=== PATIENT | male | born 1950 | race Caucasian/White ===

== ENCOUNTER 2019-10-18 11:56 | Emergency (ER) | payer OTHER, SELFPAY ==
[2019-10-18 11:59] VITALS: BP 178/96; PULSE 80; RESP 19; TEMP 36.4; O2SAT 96; BMI 26.8
--- NOTE | 2019-10-18 12:18 | ED.DCSUM_ITS ---
- ER Visit Summary Date of Service: 10/18/19 Chief Complaint: Insect bite History of Present Illness: The patient is a 69 M who presents with an insect bite that he noticed approximately 2 weeks ago. Patient states it is been itching. Patient states he went to [facility] urgent care and was given a prescription for Keflex. Patient states he was told that if it is not getting any better he should come to the emergency department. Patient states he does not feel like it is improving. Patient denies any fevers or chills. Patient denies any discharge or drainage. Patient states nothing makes it better or worse. Patient denies any abscess formation. Physical Examination: Vital signs are stable. Patient is afebrile. Patient is in no acute distress. Oral mucosa is pink and moist. Neck is supple. Trachea is midline. There is no JVD. Heart was regular rate and rhythm. Lungs are clear and equal bilateral. Abdomen is soft. Bowel sounds are normal. There is no tenderness. Skin is warm and dry. There is some erythema and warmth over the right flank area. There is no abscess formation. There is no fluctuance. There is no induration. There is no discharge or drainage. There are no vesicles or pustules noted. There are no petechia noted. Extremities are intact. There is no calf tenderness or edema. Test Results: CBC and comprehensive metabolic profile were obtained and were within normal limits. Emergency Department Course and Treatment: Patient was given a dose of IV Unasyn here. Patient will be instructed to continue his Keflex. Patient will be given a prescription for Bactrim to take in addition to this. Patient was instructed to follow-up with his primary care physician in 3 to 5 days for wound recheck. Patient understood and was agreeable with the plan. All questions were answered. Disposition: Discharge home Impression: Cellulitis right flank This note was generated with [employer] dictation software. It may contain incorrect words, spelling, and punctuation that were not noted in review of the chart prior to signing ED Disposition - Plan for ED Patient: Disposition: Home or Assisted Living Diagnosis: Cellulitis Prescriptions: Smz/Tmp Ds [Bactrim Ds] 1 tab PO BID #20 tab Prescription Printed Referrals: [facility] Doctor,Out of [NON-STAFF] - 3-5 Days
[2019-10-18 12:50] LABS: Absolute Lymphocyte Count 2.19 X10^3/uL (0.83-4.51); Absolute Neutrophil Count 3.4 X10^3/uL (2.0-7.7); Basophil# 0.05 X10^3/uL; Basophil% 0.8 % (0-1); Eosinophil# 0.44 X10^3/uL; Eosinophils% 6.7 % (0-5); Hematocrit 44.1 % (40-54); Hemoglobin 14.6 g/dL (13.0-16.5); Lymphocyte # 2.19 X10^3/ul (4.0); Lymphocyte % 33.1 % (19-41); Mean Corp Hgb Conc 33.1 g/dL (32-36); Mean Corpuscular Hgb 32.4 pg (27.0-32.0); Monocyte# 0.54 X10^3/uL; Monocyte% 8.2 % (0-10); NRBC Flagged by Analyzer 0 % (0-5); Neutrophil # 3.37 X10^3/uL (2.7-7.7); Neutrophil % 50.9 % (47-70); Platelet Count 223 K/mm3 (150-450); RBC Distribution Width CV 12.8 % (11.6-14.6); RBC Distribution Width SD 45.5 fl (35.1-43.9); White Blood Count 6.6 K/mm3 (4.4-11.0)
[2019-10-18 13:05] LABS: ALB/GLOB Ratio 1.1 RATIO (0.9-2.4); AST(SGOT) 16 U/L (15-37); Alanine Aminotransfer ALT/SGPT 34 U/L (16-61); Albumin, Serum 3.7 g/dL (3.2-5.0); Alkaline Phosphatase 46 U/L (45-117); Anion Gap 7 (5-15); BUN 11 mg/dL (7-18); BUN/Creat Ratio 13.6 RATIO (10-20); Calcium,Total 9.1 mg/dL (8.5-10.1); Chloride 107 mmol/L (98-107); Creatinine, Serum 0.81 mg/dL (0.70-1.30); EST Glomerular Filtration Rate 101 mL/min (>60); Est Glom Filt Rate - Afr Amer 123 mL/min (>60); Estimated Creatinine Clearance 91.38 ml/min; Globulin 3.4 g/dL (2.2-4.2); Glucose 156 mg/dL (74-106); Potassium 4.4 mmol/L (3.5-5.1); Protein, Total 7.1 g/dL (6.4-8.2); Sodium Level 140 mmol/L (136-145)
[2019-10-18 14:38] VITALS: BP 131/73; PULSE 56; RESP 16; TEMP 36.6; O2SAT 98
== END 2019-10-18 14:44 | disposition home or self-care (01) ==
PROVIDERS: Emergency Provider Emergency Medicine
DX: L03.311 Cellulitis of abdominal wall (principal); Z72.0 Tobacco use
CPT/HCPCS: 80053; 85025; 96365; 99283; J7050; A4216; J0295